=== PATIENT | male | born 1950 | race Caucasian/White ===

== ENCOUNTER → 2016-12-11 | Outpatient (CLI) | payer MEDICARE ==
[~2016-12-11] MED LIST: AFRIN NASAL SPR15 ML NS; ALBUTEROL0.83 MG/ML IH; AMITRIPTYLINE H25 M1 PO; AMOXICILLIN 8751 TAB PO; AMOXICILLIN875 MG PO; ARAVA; ARAVA 20MG TABL20 MG PO; ARAVA20 MG PO; ASPI325T6 PO; ASPIRIN 32325 MG/TAB PO; ASPIRIN E.C. 8181 MG PO; ATENOLOL25 MG PO; B-121000 MCG PO; BACTRIM DS 8001 TAB PO; BUDESONIDE0.5 MG/2 M IH; CALCIUM CITRAT950 MG PO; CEFTIN500 MG PO; CENA K20 MEQ/15 PO; CYMBALTA 30MG30 MG PO; DALIRESP500 MCG PO; FENTANYL 100MCG TD; FLOMAX 0.40.4 MG/CAP PO; FORADIL IH; FOSAMAX 70MG TA70 MG PO; IPRATROPIUM BROM3 M1 IH; KLOR-CON 1010 MEQ PO; LASIX 40MG TABL40 MG PO; LISINOPRIL20 MG PO; METOCLOPRAMIDE10 MG PO; MOTRIN 200200 MG/TAB PO; NEURONTIN100 MG/CAP PO; OXYCODONE5 MG PO; OXYCONTIN 20MG20 MG PO; OXYCONTIN30 MG PO; PERCOCET 325 MG1 TA2 PO; PERCOCET 325 MG1 TAB PO; PERIDEX (CHLOR480 ML MM; PLAQUENIL PO; POTASS CHL20 MEQ/15 PO; PREDNISONE 5MG5 MG PO; PREDNISONE10 MG PO; PREDNISONE20 MG PO; PRIL40 PO; PROAIR HFA0.09 MG/AC IH; PULMICORT0.5 MG/2 M IH; REMICADE V100 MG/VIA IV; RESPIMAT INH; RT SPIRIVA18 MCG IH; SPIRIVA18 MCG IH; STIOLTO RESPIMAT4 GM IH; TENORMIN 5050 MG/TAB PO; THEO-DUR 2200 MG/TAB PO; THEOCAP200 MG PO; TYLENOL 325MG325 MG PO; ULTRAM 50MG TAB50 MG PO; UNIPHYL 400MG400 MG PO; VICODIN PO; ZITHROMAX 250M250 MG PO
== END ==
LOC: MHCPAIN 11:05
DX: G89.29 Other chronic pain (principal); M54.5 Low back pain; M53.3 Sacrococcygeal disorders, not elsewhere classified; M06.9 Rheumatoid arthritis, unspecified; Z79.891 Long term (current) use of opiate analgesic
CPT/HCPCS: G0463

== ENCOUNTER 2017-01-02 10:09 | Day surgery (SDC) | payer MEDICARE ==
[~2017-01-02] VITALS: Ht 167.6 cm; Wt 84.0 kg
[~2017-01-02 10:09] MED LIST changes: -ASPI325T6 PO; -B-121000 MCG PO; -BACTRIM DS 8001 TAB PO; -CALCIUM CITRAT950 MG PO; -CENA K20 MEQ/15 PO; -FLOMAX 0.40.4 MG/CAP PO; -MOTRIN 200200 MG/TAB PO; -PERIDEX (CHLOR480 ML MM; -PROAIR HFA0.09 MG/AC IH; -RESPIMAT INH; -UNIPHYL 400MG400 MG PO; -ZITHROMAX 250M250 MG PO
[2017-01-02 11:20] VITALS: BP 137/101; PULSE 84; TEMP 97.6
[2017-01-02] MEDS ORDERED: PERCOCET 325 MG1 TAB PO (11:29)
[2017-01-02] MEDS ORDERED: MOTRIN 200200 MG/TAB PO (11:33)
[2017-01-02] MEDS ORDERED: PREDNISONE20 MG PO (11:36)
[2017-01-02] MEDS ORDERED: PREDNISONE 5MG5 MG PO (11:37)
[2017-01-02] MEDS ORDERED: FOSAMAX 70MG TA70 MG PO (11:37)
[2017-01-02] MEDS ORDERED: THEO-DUR 2200 MG/TAB PO (11:41)
[2017-01-02] MEDS ORDERED: ASPI325T6 PO (11:42)
[2017-01-02 12:43] VITALS: BP 121/96; PULSE 106; TEMP 97.8
[2017-01-02 12:55] VITALS: BP 126/86; PULSE 85
[2017-01-02 13:46] VITALS: BP 131/111; PULSE 101
== END 2017-01-02 13:40 | disposition home or self-care (01) ==
LOC: SDCO 10:09
DX: J40 Bronchitis, not specified as acute or chronic (principal); R05 Cough; R06.02 Shortness of breath; R09.89 Other specified symptoms and signs involving the circulatory and respiratory systems; I10 Essential (primary) hypertension; H44.9 Unspecified disorder of globe; Z85.528 Personal history of other malignant neoplasm of kidney; F17.210 Nicotine dependence, cigarettes, uncomplicated; Z79.52 Long term (current) use of systemic steroids; Z79.899 Other long term (current) drug therapy
CPT/HCPCS: J2704; J7120

== ENCOUNTER 2017-01-20 10:48 | Day surgery (SDC) | payer MEDICARE ==
[~2017-01-20] VITALS: Ht 167.6 cm; Wt 82.2 kg
[2017-01-20] VITALS (7 sets, daily range): BP systolic 115–133; BP diastolic 72–87; PULSE 78–89; TEMP 97.5–98
[~2017-01-20 10:48] MED LIST changes: +ASPI325T6 PO; +MOTRIN 200200 MG/TAB PO
[2017-01-20] MEDS ORDERED: RESPIMAT INH (11:51)
[2017-01-20] MEDS ORDERED: BACTRIM DS 8001 TAB PO (11:57)
== END 2017-01-20 13:45 | disposition home or self-care (01) ==
LOC: SDCO 10:48
DX: J98.11 Atelectasis (principal); R06.02 Shortness of breath; R05 Cough; R09.89 Other specified symptoms and signs involving the circulatory and respiratory systems; I10 Essential (primary) hypertension; Z85.528 Personal history of other malignant neoplasm of kidney; J44.9 Chronic obstructive pulmonary disease, unspecified; F17.210 Nicotine dependence, cigarettes, uncomplicated; Z79.52 Long term (current) use of systemic steroids; Z79.899 Other long term (current) drug therapy
CPT/HCPCS: J2704; J7030

== ENCOUNTER 2017-03-01 17:45 | Emergency (ER) | payer MEDICARE ==
[~2017-03-01] VITALS: Ht 167.6 cm; Wt 84.1 kg
[~2017-03-01 17:45] MED LIST changes: +BACTRIM DS 8001 TAB PO; +RESPIMAT INH
[2017-03-01 17:52] VITALS: TEMP 97.8
[2017-03-01] MEDS ORDERED: ZITHROMAX 250M250 MG PO (18:24)
[2017-03-01 19:42] VITALS: BP 128/84; PULSE 86
== END 2017-03-01 19:42 | disposition home or self-care (01) ==
LOC: COL.ER 17:45
DX: M16.11 Unilateral primary osteoarthritis, right hip (principal)
CPT/HCPCS: J1170

== ENCOUNTER → 2017-03-26 | Outpatient (CLI) | payer MEDICARE ==
[~2017-03-26] MED LIST changes: +B-121000 MCG PO; +CALCIUM CITRAT950 MG PO; +CENA K20 MEQ/15 PO; +FLOMAX 0.40.4 MG/CAP PO; +PERIDEX (CHLOR480 ML MM; +PROAIR HFA0.09 MG/AC IH; +UNIPHYL 400MG400 MG PO; +ZITHROMAX 250M250 MG PO
== END ==
LOC: COL.RAD 15:00
DX: I71.4 Abdominal aortic aneurysm, without rupture (principal); I71.2 Thoracic aortic aneurysm, without rupture; I70.0 Atherosclerosis of aorta

== ENCOUNTER → 2017-05-02 | Outpatient (CLI) | payer MEDICARE | LOC: COL.RAD 14:45 | DX: N28.89 Other specified disorders of kidney and ureter (principal); Z85.520 Personal history of malignant carcinoid tumor of kidney ==

== ENCOUNTER 2017-05-30 09:11 | Inpatient (IN) | payer MEDICARE ==
[~2017-05-30] VITALS: Ht 167.6 cm; Wt 86.1 kg
[~2017-05-30 09:11] MED LIST changes: -B-121000 MCG PO; -CALCIUM CITRAT950 MG PO; -CENA K20 MEQ/15 PO; -FLOMAX 0.40.4 MG/CAP PO; -PERIDEX (CHLOR480 ML MM; -PROAIR HFA0.09 MG/AC IH; -UNIPHYL 400MG400 MG PO
[2017-05-30 12:23] VITALS: BP 132/84; PULSE 84; TEMP 98.3
[2017-05-30] MEDS ORDERED: CENA K20 MEQ/15 PO (13:27)
[2017-05-30] MEDS ORDERED: CALCIUM CITRAT950 MG PO (13:28)
[2017-05-30] MEDS ORDERED: B-121000 MCG PO (13:29)
[2017-05-30] MEDS ORDERED: STIOLTO RESPIMAT4 GM IH (14:14)
[2017-05-30] MEDS ORDERED: UNIPHYL 400MG400 MG PO (14:17)
[2017-05-30] MEDS ORDERED: PROAIR HFA0.09 MG/AC IH (14:17)
[2017-05-30] MEDS ORDERED: ASPIRIN 32325 MG/TAB PO (14:19)
[2017-05-30] MEDS ORDERED: PERIDEX (CHLOR480 ML MM (14:21)
[2017-05-30] MEDS ORDERED: FLOMAX 0.40.4 MG/CAP PO (14:25)
[2017-05-30 17:26] VITALS: BP 127/76; PULSE 81; TEMP 98.4
[2017-05-30 18:00] VITALS: BP 127/76; PULSE 81; TEMP 98.4
[2017-05-31 04:05] VITALS: BP 148/85; PULSE 81; TEMP 98
[2017-05-31 16:10] VITALS: BP 142/91; PULSE 80; TEMP 97.3
[2017-06-01 04:03] VITALS: BP 108/72; PULSE 85; TEMP 98.1
[2017-06-01 18:00] VITALS: BP 117/68; PULSE 92; TEMP 97
[2017-06-02 04:54] VITALS: BP 121/74; PULSE 84; TEMP 96.8
[2017-06-02 16:55] VITALS: BP 130/86; PULSE 96; TEMP 97.3
[2017-06-03 04:53] VITALS: BP 131/84; PULSE 94; TEMP 97.2
[2017-06-03 18:20] VITALS: BP 129/81; PULSE 94; TEMP 97.1
[2017-06-04 04:52] VITALS: BP 127/75; PULSE 84; TEMP 97.6
[2017-06-04 17:28] VITALS: BP 105/64; PULSE 78; TEMP 96.7
[2017-06-05 05:44] VITALS: BP 109/70; PULSE 79; TEMP 98.6
[2017-06-05 18:00] VITALS: BP 122/76; PULSE 93; TEMP 98.3
[2017-06-06 05:44] VITALS: BP 102/64; PULSE 91; TEMP 98.3
[2017-06-06 16:18] VITALS: BP 104/71; PULSE 86; TEMP 98.5
[2017-06-07 04:50] VITALS: BP 113/68; PULSE 93; TEMP 97.8
[2017-06-07 17:04] VITALS: BP 118/83; PULSE 100; TEMP 96.5
[2017-06-08 06:31] VITALS: BP 121/73; PULSE 77; TEMP 97.4
[2017-06-08 16:56] VITALS: BP 116/71; PULSE 88; TEMP 97.5
[2017-06-09 06:09] VITALS: PULSE 82; TEMP 97.2
[2017-06-09 06:33] VITALS: BP 103/69
[2017-06-09 16:20] VITALS: BP 101/72; PULSE 90; TEMP 97
[2017-06-10 06:44] VITALS: BP 108/74; PULSE 78; TEMP 99.1
[2017-06-10 15:29] VITALS: BP 118/75; PULSE 88; TEMP 96.8
[2017-06-11 06:13] VITALS: BP 126/75; PULSE 81; TEMP 97.4
[2017-06-11 16:33] VITALS: BP 116/75; PULSE 80; TEMP 97.1
[2017-06-12 04:26] VITALS: BP 125/78; PULSE 92; TEMP 97
== END 2017-06-12 12:59 | disposition home or self-care (01) | DRG 93 ==
DX: G72.0 Drug-induced myopathy (principal); T38.0X5D Adverse effect of glucocorticoids and synthetic analogues, subsequent encounter; M06.9 Rheumatoid arthritis, unspecified; J44.9 Chronic obstructive pulmonary disease, unspecified; R26.81 Unsteadiness on feet; Z91.81 History of falling; F17.210 Nicotine dependence, cigarettes, uncomplicated; G89.29 Other chronic pain; I10 Essential (primary) hypertension
CPT/HCPCS: 99222-AI; 99232-AI; 99239; J1650; J7512

== ENCOUNTER 2017-06-27 17:59 | Emergency (ER) | payer MEDICARE ==
[~2017-06-27] VITALS: Ht 167.6 cm; Wt 86.4 kg
[~2017-06-27 17:59] MED LIST changes: +B-121000 MCG PO; +CALCIUM CITRAT950 MG PO; +CENA K20 MEQ/15 PO; +FLOMAX 0.40.4 MG/CAP PO; +PERIDEX (CHLOR480 ML MM; +PROAIR HFA0.09 MG/AC IH; +UNIPHYL 400MG400 MG PO
[2017-06-27 18:07] VITALS: TEMP 97.8
[2017-06-27 19:57] VITALS: PULSE 79
[2017-06-27 20:04] VITALS: BP 116/72
== END 2017-06-27 20:00 | disposition home or self-care (01) ==
LOC: COL.ER 17:59
DX: M06.9 Rheumatoid arthritis, unspecified (principal); G89.29 Other chronic pain; G83.9 Paralytic syndrome, unspecified; J44.9 Chronic obstructive pulmonary disease, unspecified; F17.210 Nicotine dependence, cigarettes, uncomplicated; Z85.528 Personal history of other malignant neoplasm of kidney; Z79.82 Long term (current) use of aspirin
CPT/HCPCS: J1170

== ENCOUNTER 2017-07-18 16:00 | Outpatient (RCR) | payer MEDICARE | END 2017-08-01 16:16 | LOC: WSOT 16:00 | DX: M06.9 Rheumatoid arthritis, unspecified (principal); G72.0 Drug-induced myopathy | CPT/HCPCS: G8987-GO; G8988-GO; G8989-GO ==

== ENCOUNTER 2017-09-11 15:45 | Outpatient (RCR) | payer MEDICARE | END 2017-09-15 | LOC: WSPT | DX: M17.0 Bilateral primary osteoarthritis of knee (principal) | CPT/HCPCS: G8978-GP; G8979-GP ==

== ENCOUNTER 2017-10-01 15:30 | Outpatient (RCR) | payer MEDICARE ==
[2017-10-07] MEDS ORDERED: FENTANYL 100MCG TD (22:55)
[2017-10-07] MEDS ORDERED: CENA K20 MEQ/15 PO (23:00)
[2017-10-12] MEDS ORDERED: ZITHROMAX 250M250 MG PO (15:56)
[2017-10-12] MEDS ORDERED: AMOXICILLIN 8751 TAB PO (15:56)
[2017-10-12] MEDS ORDERED: LASIX 20MG TABL20 MG PO (15:57)
[2017-10-12] MEDS ORDERED: PREDNISONE20 MG PO (15:58)
[2017-10-12] MEDS ORDERED: GNC NAC 600600 MG PO (15:59)
== END 2017-11-04 11:46 | disposition home or self-care (01) ==
LOC: WSPT 15:30
DX: M17.0 Bilateral primary osteoarthritis of knee (principal)
CPT/HCPCS: G8979-GP; G8980-GP

== ENCOUNTER 2017-10-07 18:37 | Inpatient (IN) | payer MEDICARE ==
[~2017-10-07] VITALS: Ht 167.6 cm; Wt 97.8 kg
[2017-10-07 19:09] LABS: BASO # 0.1 (0.0-0.2); BASO % 0.4 % (0.0-2.0); EOS % 0.1 % (0-4.0); GRAN % 86.5 % (42.2-75.2); HEMATOCRIT 37.6 % (42.0-52.0); HEMOGLOBIN 12.5 g/dl (13.5-18.0); LYMPH % 6.9 % (20.0-51.0); MEAN CELL VOLUME 96 fl (80.0-100.0); MEAN CORPUSCULAR HEMOGLOBIN 32 pg (27.0-31.0); MEAN CORPUSCULAR HGB CONC 33 g/dl (33.0-37.0); MEAN PLATELET VOLUME 9.3 fl (7.4-10.4); MONO # 0.7 (0.1-0.6); MONO % 5.3 % (1.7-9.3); PLATELET COUNT 208 K/mm3 (130-400); RED BLOOD COUNT 3.93 M/mm3 (4.20-5.60); WHITE BLOOD COUNT 13.9 K/mm3 (4.8-10.8)
[2017-10-07 19:24] LABS: ADJUSTED CALCIUM 9.3 mg/dL (8.4-10.2); ALBUMIN 3.9 gm/dL (3.5-5.0); BILIRUBIN,TOTAL 0.3 mg/dL (0.0-1.0); CALCIUM 9.2 mg/dL (8.4-10.2); CREATININE, serum 0.97 mg/dL (0.66-1.25); POTASSIUM 4.5 mmol/L (3.4-5.0); TOTAL PROTEIN 6.6 gm/dL (6.4-8.2)
[2017-10-07 20:36] LABS: ARTERIAL BLD GAS TCO2 CT 24.2; ARTERIAL BLOOD GAS BASE EXCESS -1.3 (-2-2); ARTERIAL BLOOD GAS HCO3 23.1 meq/L (22-26); ARTERIAL BLOOD GAS PHT 7.42 C (7.35-7.45); ARTERIAL BLOOD GAS PO2 81.8 mmHg (80-100); ARTERIAL BLOOD GAS PO2T 78.7 (80-100); ARTERIAL BLOOD GAS pH 7.41 (7.35-7.45); OXYHEMOGLOBIN 89.6 %
[2017-10-07 20:37] LABS: ALLEN TEST YES; ALLENS TEST RESULT PASS; ATS? YES
[2017-10-07] MEDS ORDERED: FENTANYL 100MCG TD (22:55)
[2017-10-07] MEDS ORDERED: CENA K20 MEQ/15 PO (23:00)
[2017-10-07 23:05] VITALS: BP 141/82; PULSE 104; TEMP 98.8
[2017-10-08] VITALS (91 sets, daily range): BP systolic 110–144; BP diastolic 59–89; PULSE 115–130; TEMP 97.5–98.2; O2SAT 89–95
[2017-10-08 02:08] LABS: PROTHROMBIN TIME 10.6 SECONDS (9.7-12.8)
[2017-10-08 02:14] LABS: SALICYLATE < 1.0 mg/dL
[2017-10-08 02:22] LABS: TROPONIN-I < 0.012 ng/mL (0.000-0.034)
[2017-10-08 05:07] LABS: BASO % 0.1 % (0.0-2.0); GRAN # 12.9 (1.4-6.5); GRAN % 96.1 % (42.2-75.2); LYMPH # 0.3 (1.2-3.4); MEAN CELL VOLUME 95 fl (80.0-100.0); MEAN CORPUSCULAR HGB CONC 33 g/dl (33.0-37.0); MEAN PLATELET VOLUME 9.5 fl (7.4-10.4); MONO # 0.2 (0.1-0.6); MONO % 1.1 % (1.7-9.3); PLATELET COUNT 179 K/mm3 (130-400); RED BLOOD COUNT 3.71 M/mm3 (4.20-5.60); WHITE BLOOD COUNT 13.4 K/mm3 (4.8-10.8)
[2017-10-08 05:09] LABS: HEMATOCRIT 35.4 % (42.0-52.0); HEMOGLOBIN 11.6 g/dl (13.5-18.0); MEAN CORPUSCULAR HEMOGLOBIN 31 pg (27.0-31.0)
[2017-10-08 05:19] LABS: ADJUSTED CALCIUM 9.2 mg/dL (8.4-10.2); ALBUMIN 3.7 gm/dL (3.5-5.0); BILIRUBIN,TOTAL 0.3 mg/dL (0.0-1.0); CREATININE, serum 0.87 mg/dL (0.66-1.25); POTASSIUM 4.4 mmol/L (3.4-5.0); TOTAL PROTEIN 6.6 gm/dL (6.4-8.2)
[2017-10-08 07:12] LABS: PH 5 (5-8); SQUAMOUS EPITHELIAL None Seen /hpf; URINE APPEARANCE Clear; URINE BACTERIA None Seen /hpf; URINE BILIRUBIN Negative (NEGATIVE); URINE BLOOD Negative (NEGATIVE); URINE COLOR Yellow; URINE GLUCOSE Negative (NEGATIVE); URINE KETONE Negative (NEGATIVE); URINE LEUKOCYTE ESTERASE Negative (NEGATIVE); URINE PROTEIN(semi-quant) Negative (NEGATIVE); URINE RBC 0-2 /hpf; URINE UROBILINOGEN Negative (NEGATIVE); URINE WBC 0-2 /hpf
[2017-10-08 07:30] LABS: COLLECTION METHOD CLEAN CATCH
[2017-10-08 12:25] LABS: ARTERIAL BLD GAS O2 SATURATION 92.5 % (92-100); ARTERIAL BLD GAS TCO2 CT 19.3; ARTERIAL BLOOD GAS BASE EXCESS -6.7 (-2-2); ARTERIAL BLOOD GAS HCO3 18.2 meq/L (22-26); ARTERIAL BLOOD GAS PO2 68.6 mmHg (80-100); ARTERIAL BLOOD GAS pH 7.34 (7.35-7.45); OXYHEMOGLOBIN 89.7 %
[2017-10-08 12:26] LABS: ATS? YES
[2017-10-08 13:06] LABS: CALCIUM 8.2 mg/dL (8.4-10.2); CREATININE, serum 0.8 mg/dL (0.66-1.25); POTASSIUM 3.9 mmol/L (3.4-5.0)
[2017-10-08 18:38] LABS: TROPONIN-I 0.017 ng/mL (0.000-0.034)
[2017-10-08 19:44] LABS: THEOPHYLLINE 4.3 ug/mL (10.0-20.0)
[2017-10-09] VITALS (1024 sets, daily range): BP systolic 124–134; BP diastolic 79–84; PULSE 95–109; TEMP 97.4–98.8; O2SAT 79–100
[2017-10-09 06:04] LABS: MEAN CELL VOLUME 96 fl (80.0-100.0); MEAN CORPUSCULAR HGB CONC 33 g/dl (33.0-37.0); MEAN PLATELET VOLUME 9.6 fl (7.4-10.4); PLATELET COUNT 175 K/mm3 (130-400); RED BLOOD COUNT 3.01 M/mm3 (4.20-5.60)
[2017-10-09 06:07] LABS: PROTHROMBIN TIME 11.6 SECONDS (9.7-12.8)
[2017-10-09 06:13] LABS: HEMOGLOBIN 9.5 g/dl (13.5-18.0); MEAN CORPUSCULAR HEMOGLOBIN 32 pg (27.0-31.0)
[2017-10-09 06:14] LABS: ADD PATHOLOGY DIFF REVIEW NO
[2017-10-09 06:23] LABS: ADJUSTED CALCIUM 8.6 mg/dL (8.4-10.2); ALBUMIN 3.3 gm/dL (3.5-5.0); BILIRUBIN,TOTAL 0.3 mg/dL (0.0-1.0); CREATININE, serum 0.75 mg/dL (0.66-1.25); POTASSIUM 3.9 mmol/L (3.4-5.0); TOTAL PROTEIN 5.6 gm/dL (6.4-8.2)
[2017-10-09 06:37] LABS: BAND 12 % (0-10); LYMPHOCYTE 3 % (20.0-51.0); NEUTROPHILS 83 % (42.0-75.2); PLATELET ESTIMATE NORMAL (NORMAL); TOTAL CELLS COUNTED 100
[2017-10-09 10:36] LABS: ALLEN TEST YES; ALLENS TEST RESULT PASS; ARTERIAL BLD GAS O2 SATURATION 92.7 % (92-100); ARTERIAL BLD GAS TCO2 CT 19.7; ARTERIAL BLOOD GAS BASE EXCESS -5.6 (-2-2); ARTERIAL BLOOD GAS HCO3 18.7 meq/L (22-26); ARTERIAL BLOOD GAS PO2 71.6 mmHg (80-100); ARTERIAL BLOOD GAS pH 7.38 (7.35-7.45); ATS? YES; OXYHEMOGLOBIN 90.8 %
[2017-10-10] VITALS (1066 sets, daily range): BP systolic 131–141; BP diastolic 78–98; PULSE 99–125; TEMP 97.6–98.1; O2SAT 67–98
[2017-10-10 06:11] LABS: MEAN CELL VOLUME 95 fl (80.0-100.0); MEAN CORPUSCULAR HGB CONC 34 g/dl (33.0-37.0); MEAN PLATELET VOLUME 9.6 fl (7.4-10.4); PLATELET COUNT 194 K/mm3 (130-400); RED BLOOD COUNT 3.42 M/mm3 (4.20-5.60); WHITE BLOOD COUNT 15.3 K/mm3 (4.8-10.8)
[2017-10-10 06:13] LABS: ADD PATHOLOGY DIFF REVIEW NO; HEMATOCRIT 32.5 % (42.0-52.0); HEMOGLOBIN 10.9 g/dl (13.5-18.0); MEAN CORPUSCULAR HEMOGLOBIN 32 pg (27.0-31.0)
[2017-10-10 06:17] LABS: PROTHROMBIN TIME 11.6 SECONDS (9.7-12.8)
[2017-10-10 06:28] LABS: ADJUSTED CALCIUM 8.6 mg/dL (8.4-10.2); ALBUMIN 3.3 gm/dL (3.5-5.0); BILIRUBIN,TOTAL 0.4 mg/dL (0.0-1.0); CREATININE, serum 0.75 mg/dL (0.66-1.25); POTASSIUM 4.3 mmol/L (3.4-5.0); TOTAL PROTEIN 5.6 gm/dL (6.4-8.2)
[2017-10-10 06:44] LABS: BAND 6 % (0-10); LYMPHOCYTE 4 % (20.0-51.0); NEUTROPHILS 89 % (42.0-75.2); PLATELET ESTIMATE NORMAL (NORMAL); TOTAL CELLS COUNTED 100
[2017-10-11] VITALS (537 sets, daily range): BP systolic 132–169; BP diastolic 73–95; PULSE 81–108; TEMP 97.6–98.5; O2SAT 87–98
[2017-10-11 07:29] LABS: MEAN CELL VOLUME 95 fl (80.0-100.0); MEAN CORPUSCULAR HGB CONC 34 g/dl (33.0-37.0); PLATELET COUNT 185 K/mm3 (130-400); RED BLOOD COUNT 3.48 M/mm3 (4.20-5.60)
[2017-10-11 07:30] LABS: HEMATOCRIT 33.1 % (42.0-52.0); HEMOGLOBIN 11.1 g/dl (13.5-18.0); MEAN CORPUSCULAR HEMOGLOBIN 32 pg (27.0-31.0)
[2017-10-11 07:31] LABS: ADD PATHOLOGY DIFF REVIEW NO; PROTHROMBIN TIME 11.6 SECONDS (9.7-12.8)
[2017-10-11 07:36] LABS: ADJUSTED CALCIUM 8.7 mg/dL (8.4-10.2); ALBUMIN 3.4 gm/dL (3.5-5.0); BILIRUBIN,TOTAL 0.5 mg/dL (0.0-1.0); CALCIUM 8.2 mg/dL (8.4-10.2); CREATININE, serum 0.84 mg/dL (0.66-1.25); POTASSIUM 3.6 mmol/L (3.4-5.0); TOTAL PROTEIN 5.8 gm/dL (6.4-8.2)
[2017-10-11 08:40] LABS: BAND 4 % (0-10); LYMPHOCYTE 2 % (20.0-51.0); NEUTROPHILS 92 % (42.0-75.2); PLATELET ESTIMATE NORMAL (NORMAL); TOTAL CELLS COUNTED 100
[2017-10-11 08:41] LABS: ANISOCYTOSIS 1+
[2017-10-12 00:20] VITALS: BP 140/98; PULSE 92; TEMP 98.4
[2017-10-12 03:48] VITALS: BP 137/87; PULSE 92; TEMP 97.7
[2017-10-12 08:40] VITALS: BP 130/84; PULSE 99; TEMP 97.7
[2017-10-12 11:39] VITALS: BP 130/90; PULSE 90; TEMP 98
[2017-10-12] MEDS ORDERED: ZITHROMAX 250M250 MG PO (15:56)
[2017-10-12] MEDS ORDERED: AMOXICILLIN 8751 TAB PO (15:56)
[2017-10-12] MEDS ORDERED: LASIX 20MG TABL20 MG PO (15:57)
[2017-10-12] MEDS ORDERED: PREDNISONE20 MG PO (15:58)
[2017-10-12] MEDS ORDERED: GNC NAC 600600 MG PO (15:59)
[2017-10-12 16:47] VITALS: BP 127/87; PULSE 83; TEMP 97.9
== END 2017-10-12 18:08 | DRG 871 ==
LOC: COL.ER 18:37 → PEDS 20:13 → ICU 10-08 20:12 → MEDICAL 10-11 15:00 → ICU 10-11 15:00 → MEDICAL 10-11 15:00
PROVIDERS: Family Medicine; Internal Medicine Critical Care Medicine; Nurse Practitioner Family; Physician Assistant
DX: A41.9 Sepsis, unspecified organism (principal); J18.9 Pneumonia, unspecified organism; R65.21 Severe sepsis with septic shock; J96.21 Acute and chronic respiratory failure with hypoxia; Z66 Do not resuscitate; J44.1 Chronic obstructive pulmonary disease with (acute) exacerbation; E87.1 Hypo-osmolality and hyponatremia; J44.0 Chronic obstructive pulmonary disease with (acute) lower respiratory infection; E87.2 Acidosis; I10 Essential (primary) hypertension; M06.9 Rheumatoid arthritis, unspecified; F17.210 Nicotine dependence, cigarettes, uncomplicated; K04.7 Periapical abscess without sinus; G72.3 Periodic paralysis; I71.4 Abdominal aortic aneurysm, without rupture
CPT/HCPCS: 99223-AI; 99233-AI; J0295; J0456; J1170; J1650; J1940; J1956; J2930; J7030; J7050; J7120; J7512; P9047; Q9967

== ENCOUNTER 2017-10-12 18:19 | Inpatient (IN) | payer MEDICARE ==
[~2017-10-12] VITALS: Ht 167.6 cm; Wt 88.8 kg
[~2017-10-12 18:19] MED LIST changes: +GNC NAC 600600 MG PO; +LASIX 20MG TABL20 MG PO
[2017-10-12 19:09] VITALS: BP 126/78; PULSE 78; TEMP 98.6
[2017-10-13 06:21] VITALS: BP 143/92; PULSE 73; TEMP 98.2
[2017-10-13 16:16] VITALS: BP 123/83; PULSE 71; TEMP 97.6
[2017-10-14 06:30] VITALS: BP 147/84; PULSE 71; TEMP 97.1
[2017-10-14 16:13] VITALS: BP 100/64; PULSE 79; TEMP 97.5
[2017-10-15 05:53] VITALS: BP 118/81; PULSE 78; TEMP 97.9
[2017-10-15 15:47] VITALS: BP 117/67; PULSE 79; TEMP 97.7
[2017-10-16 04:09] VITALS: BP 124/70; PULSE 81; TEMP 98.2
[2017-10-16 13:00] LABS: CALCIUM 9.6 mg/dL (8.4-10.2); CREATININE, serum 1.15 mg/dL (0.66-1.25); MAGNESIUM 2.1 mg/dL (1.6-2.3); POTASSIUM 3.8 mmol/L (3.4-5.0)
[2017-10-16 17:34] VITALS: BP 111/81; PULSE 87; TEMP 97.5
[2017-10-17 05:30] VITALS: BP 127/64; PULSE 77; TEMP 97.8
[2017-10-17 16:12] VITALS: BP 106/65; PULSE 81; TEMP 97.6
[2017-10-18 04:06] VITALS: BP 114/72; PULSE 83; TEMP 96.9
[2017-10-18 15:33] VITALS: BP 106/69; PULSE 85; TEMP 97.5
[2017-10-19 03:42] VITALS: BP 116/77; PULSE 69; TEMP 97.8
[2017-10-19 17:05] VITALS: BP 108/71; PULSE 114; TEMP 97.6
[2017-10-20 04:38] VITALS: BP 132/79; PULSE 90; TEMP 98.2
[2017-10-20 17:51] VITALS: BP 112/74; PULSE 85; TEMP 97.6
[2017-10-21 05:51] VITALS: BP 127/78; PULSE 78; TEMP 97.3
[2017-10-21 09:22] VITALS: PULSE 111
[2017-10-21 18:10] VITALS: BP 105/78; PULSE 80; TEMP 98
[2017-10-22 05:37] VITALS: BP 129/79; PULSE 73; TEMP 97.5
[2017-10-22 13:24] LABS: MEAN CELL VOLUME 97 fl (80.0-100.0); MEAN CORPUSCULAR HEMOGLOBIN 32 pg (27.0-31.0); MEAN CORPUSCULAR HGB CONC 33 g/dl (33.0-37.0); MEAN PLATELET VOLUME 9.9 fl (7.4-10.4); PLATELET COUNT 144 K/mm3 (130-400); RED BLOOD COUNT 3.78 M/mm3 (4.20-5.60); WHITE BLOOD COUNT 12.2 K/mm3 (4.8-10.8)
[2017-10-22 13:27] LABS: ADD PATHOLOGY DIFF REVIEW NO; HEMATOCRIT 36.6 % (42.0-52.0)
[2017-10-22 13:40] LABS: BAND 12 % (0-10); LYMPHOCYTE 4 % (20.0-51.0); NEUTROPHILS 81 % (42.0-75.2); PLATELET ESTIMATE NORMAL (NORMAL); TOTAL CELLS COUNTED 100
[2017-10-22 13:41] LABS: HYPOCHROMIA 1+
[2017-10-22 17:38] VITALS: BP 114/75; PULSE 83; TEMP 97.8
[2017-10-23 04:30] VITALS: BP 128/80; PULSE 88; TEMP 97
[2017-10-23 18:21] VITALS: BP 111/71; PULSE 96; TEMP 97.8
[2017-10-24 04:07] VITALS: BP 119/74; PULSE 78; TEMP 97
[2017-10-24 06:11] LABS: ADD PATHOLOGY DIFF REVIEW NO
[2017-10-24 06:18] LABS: MEAN CELL VOLUME 100 fl (80.0-100.0); MEAN CORPUSCULAR HGB CONC 33 g/dl (33.0-37.0); MEAN PLATELET VOLUME 10.6 fl (7.4-10.4); PLATELET COUNT 134 K/mm3 (130-400); RED BLOOD COUNT 3.31 M/mm3 (4.20-5.60); WHITE BLOOD COUNT 9.8 K/mm3 (4.8-10.8)
[2017-10-24 06:30] LABS: HEMOGLOBIN 10.8 g/dl (13.5-18.0); MEAN CORPUSCULAR HEMOGLOBIN 33 pg (27.0-31.0)
[2017-10-24 06:31] LABS: CALCIUM 9.5 mg/dL (8.4-10.2); CREATININE, serum 1.06 mg/dL (0.66-1.25); MAGNESIUM 2.3 mg/dL (1.6-2.3); POTASSIUM 4.5 mmol/L (3.4-5.0)
[2017-10-24 07:33] LABS: BAND 24 % (0-10); LYMPHOCYTE 5 % (20.0-51.0); METAMYELOCYTE 1 % (0-0); NEUTROPHILS 68 % (42.0-75.2); TOTAL CELLS COUNTED 100
[2017-10-24 07:34] LABS: PLATELET ESTIMATE NORMAL (NORMAL)
[2017-10-24 17:59] VITALS: BP 125/80; PULSE 95; TEMP 97.7
[2017-10-25 05:47] VITALS: BP 121/71; PULSE 83; TEMP 97.1
[2017-10-25 16:57] VITALS: BP 124/74; PULSE 91; TEMP 97.8
[2017-10-26 05:48] VITALS: BP 125/79; PULSE 86; TEMP 97.8
[2017-10-26 16:00] VITALS: BP 113/68; PULSE 86; TEMP 99
[2017-10-27 05:13] VITALS: BP 132/81; PULSE 80; TEMP 97.7
[2017-10-27 15:02] VITALS: BP 124/71; PULSE 86; TEMP 97.7
[2017-10-28 04:09] VITALS: BP 131/80; PULSE 78; TEMP 97
== END 2017-10-28 13:01 | DRG 947 ==
PROVIDERS: Internal Medicine; Internal Medicine Pulmonary Disease
PROC: 02HV33Z Insertion of Infusion Device into Superior Vena Cava, Percutaneous Approach (ICD-10-PCS; principal; 2017-10-28)
DX: R53.81 Other malaise (principal); J18.9 Pneumonia, unspecified organism; J44.1 Chronic obstructive pulmonary disease with (acute) exacerbation; J44.0 Chronic obstructive pulmonary disease with (acute) lower respiratory infection; Z66 Do not resuscitate; I10 Essential (primary) hypertension; G72.3 Periodic paralysis; M06.9 Rheumatoid arthritis, unspecified; F17.210 Nicotine dependence, cigarettes, uncomplicated; G89.29 Other chronic pain
CPT/HCPCS: 99222-AI; 99232-AI; 99233-AI; C1751; J1650; J1815; J7512

== ENCOUNTER 2017-10-28 13:33 | Inpatient (IN) | payer MEDICARE ==
[2017-10-28] VITALS (267 sets, daily range): BP systolic 102–118; BP diastolic 73–88; PULSE 81–100; TEMP 97.5–98.6; O2SAT 85–100
[~2017-10-28] VITALS: Ht 167.6 cm; Wt 88.4 kg
[2017-10-28 16:11] LABS: MEAN CELL VOLUME 99 fl (80.0-100.0); MEAN CORPUSCULAR HGB CONC 32 g/dl (33.0-37.0); MEAN PLATELET VOLUME 9.3 fl (7.4-10.4); PLATELET COUNT 155 K/mm3 (130-400); RED BLOOD COUNT 3.23 M/mm3 (4.20-5.60); WHITE BLOOD COUNT 8.3 K/mm3 (4.8-10.8)
[2017-10-28 16:12] LABS: HEMATOCRIT 31.8 % (42.0-52.0); HEMOGLOBIN 10.1 g/dl (13.5-18.0); MEAN CORPUSCULAR HEMOGLOBIN 31 pg (27.0-31.0)
[2017-10-28 16:13] LABS: ADD PATHOLOGY DIFF REVIEW NO
[2017-10-28 16:22] LABS: ADJUSTED CALCIUM 10.3 mg/dL (8.4-10.2); ALBUMIN 3.3 gm/dL (3.5-5.0); BILIRUBIN,TOTAL 0.7 mg/dL (0.0-1.0); CALCIUM 9.7 mg/dL (8.4-10.2); CREATININE, serum 0.94 mg/dL (0.66-1.25); MAGNESIUM 2.2 mg/dL (1.6-2.3); PHOSPHOROUS 3.5 mg/dL (2.5-4.5); POTASSIUM 4.4 mmol/L (3.4-5.0); TOTAL PROTEIN 6.7 gm/dL (6.4-8.2)
[2017-10-28 16:32] LABS: BAND 43 % (0-10); METAMYELOCYTE 1 % (0-0); NEUTROPHILS 50 % (42.0-75.2); PLATELET ESTIMATE NORMAL (NORMAL); TOTAL CELLS COUNTED 100
[2017-10-28 16:35] LABS: HYPOCHROMIA 1+
[2017-10-28 16:36] LABS: ALLEN TEST YES; ALLENS TEST RESULT PASS; ARTERIAL BLD GAS O2 SATURATION 96.9 % (92-100); ARTERIAL BLD GAS TCO2 CT 31.1; ARTERIAL BLOOD GAS BASE EXCESS 4.9 (-2-2); ARTERIAL BLOOD GAS HCO3 29.7 meq/L (22-26); ARTERIAL BLOOD GAS PO2 107.7 mmHg (80-100); ARTERIAL BLOOD GAS pH 7.44 (7.35-7.45); ATS? YES; OXYHEMOGLOBIN 95.3 %
[2017-10-28 16:37] LABS: ABG VENTILATOR TIDAL VOLUME 785 mL
[2017-10-29] VITALS (1154 sets, daily range): BP systolic 118–129; BP diastolic 72–93; PULSE 74–95; TEMP 97.5–98.7; O2SAT 65–100
[2017-10-29 04:41] LABS: ARTERIAL BLD GAS O2 SATURATION 96.9 % (92-100); ARTERIAL BLOOD GAS BASE EXCESS 3.1 (-2-2); ARTERIAL BLOOD GAS HCO3 27.7 meq/L (22-26); ARTERIAL BLOOD GAS PO2 104.4 mmHg (80-100); ARTERIAL BLOOD GAS pH 7.43 (7.35-7.45); OXYHEMOGLOBIN 95.1 %
[2017-10-29 04:42] LABS: ALLEN TEST YES; ALLENS TEST RESULT PASS; ATS? YES
[2017-10-29 05:59] LABS: MEAN CELL VOLUME 99 fl (80.0-100.0); MEAN CORPUSCULAR HGB CONC 32 g/dl (33.0-37.0); PLATELET COUNT 178 K/mm3 (130-400); RED BLOOD COUNT 3.22 M/mm3 (4.20-5.60); WHITE BLOOD COUNT 8.1 K/mm3 (4.8-10.8)
[2017-10-29 06:01] LABS: ADD PATHOLOGY DIFF REVIEW NO; HEMATOCRIT 31.9 % (42.0-52.0); HEMOGLOBIN 10.2 g/dl (13.5-18.0); MEAN CORPUSCULAR HEMOGLOBIN 32 pg (27.0-31.0)
[2017-10-29 06:09] LABS: ADJUSTED CALCIUM 10.1 mg/dL (8.4-10.2); ALBUMIN 3.4 gm/dL (3.5-5.0); BILIRUBIN,TOTAL 0.5 mg/dL (0.0-1.0); CALCIUM 9.6 mg/dL (8.4-10.2); CREATININE, serum 0.84 mg/dL (0.66-1.25); POTASSIUM 4.3 mmol/L (3.4-5.0); TOTAL PROTEIN 6.9 gm/dL (6.4-8.2)
[2017-10-29 06:13] LABS: BAND 29 % (0-10); LYMPHOCYTE 3 % (20.0-51.0); METAMYELOCYTE 1 % (0-0); NEUTROPHILS 60 % (42.0-75.2); TOTAL CELLS COUNTED 100
[2017-10-29 06:14] LABS: ANISOCYTOSIS 1+; MICROCYTOSIS 1+; POLYCHROMASIA 1+
[2017-10-30] VITALS (1049 sets, daily range): BP systolic 118–141; BP diastolic 73–94; PULSE 89–99; TEMP 97–97.8; O2SAT 56–100
[2017-10-30 05:39] LABS: MEAN CELL VOLUME 98 fl (80.0-100.0); MEAN CORPUSCULAR HGB CONC 32 g/dl (33.0-37.0); MEAN PLATELET VOLUME 9.8 fl (7.4-10.4); PLATELET COUNT 170 K/mm3 (130-400); RED BLOOD COUNT 3.16 M/mm3 (4.20-5.60); WHITE BLOOD COUNT 9.2 K/mm3 (4.8-10.8)
[2017-10-30 05:47] LABS: HEMATOCRIT 30.9 % (42.0-52.0); HEMOGLOBIN 9.8 g/dl (13.5-18.0); MEAN CORPUSCULAR HEMOGLOBIN 31 pg (27.0-31.0)
[2017-10-30 05:48] LABS: ADD PATHOLOGY DIFF REVIEW NO
[2017-10-30 05:49] LABS: CREATININE, serum 0.86 mg/dL (0.66-1.25); POTASSIUM 3.7 mmol/L (3.4-5.0)
[2017-10-30 06:22] LABS: BAND 21 % (0-10); LYMPHOCYTE 2 % (20.0-51.0); NEUTROPHILS 74 % (42.0-75.2); TOTAL CELLS COUNTED 100
[2017-10-30 06:23] LABS: HYPOCHROMIA 2+; PLATELET ESTIMATE NORMAL (NORMAL)
[2017-10-31] VITALS (487 sets, daily range): BP systolic 97–139; BP diastolic 74–88; PULSE 80–95; TEMP 97–98.4; O2SAT 73–100
[2017-11-01 21:35] VITALS: BP 100/71; PULSE 98; TEMP 98.1
[2017-11-02 13:00] VITALS: BP 127/69; PULSE 118
== END 2017-11-04 06:00 | disposition expired | DRG 189 ==
LOC: ICU 13:33 → SURG 10-31 15:27
PROVIDERS: Internal Medicine; Internal Medicine Pulmonary Disease
DX: J96.21 Acute and chronic respiratory failure with hypoxia (principal); J44.1 Chronic obstructive pulmonary disease with (acute) exacerbation; E87.1 Hypo-osmolality and hyponatremia; Z51.5 Encounter for palliative care; Z66 Do not resuscitate; I10 Essential (primary) hypertension; M06.9 Rheumatoid arthritis, unspecified; G72.3 Periodic paralysis; F17.210 Nicotine dependence, cigarettes, uncomplicated; I27.20 Pulmonary hypertension, unspecified
CPT/HCPCS: 99223-AI; 99232-AI; 99233-AI; A4314; J0692; J1630; J1644; J1650; J1815; J1956; J2060; J2270; J2920; J2930; Q9967